=== PATIENT | male | born 1980 ===

== ENCOUNTER 2018-08-27 14:58 | Observation (INO) | payer OTHER ==
[2018-08-27] MEDS ORDERED: Sodium Chloride 0.9% 1,000 ML IV STA (15:43)
--- NOTE | 2018-08-27 15:56 | ED PDOC ---
Arrival/HPI - General Historian: Patient - History of Present Illness Narrative History of Present Illness (Text): 08/27/18 15:55 37-year-old male presents today with right-sided abdominal pain. Patient states he had slight abdominal pain yesterday and then about 6 hours prior to arrival he developed severe sharp achy right-sided abdominal pain that is nonradiating. He denies testicular pain. He denies urinary symptoms. Patient states pain is associated with nausea vomiting and diarrhea. Patient denies chest pain or shortness of breath. Patient states he took Tylenol at home for pain without improvement. pt denies back pain. denies dizziness or weakness. no sick contacts. no other complaints. <Rachael Braun - Last Filed: 08/27/18 19:29> <Tristian Jolly - Last Filed: 08/28/18 07:26> - General Time Seen by Provider: 08/27/18 15:17 Past Medical History - Provider Review Nursing Documentation Reviewed: Yes - Travel History Have you recently traveled outside [place] w/in the past 3 mons?: No - Tetanus Immunization Tetanus Immunization: Unknown <Rachael Braun - Last Filed: 08/27/18 19:29> Family/Social History - Physician Review Nursing Documentation Reviewed: Yes Family/Social History: Unknown Family HX Smoking Status: Never Smoked Hx Alcohol Use: No Hx Substance Use: No Hx Substance Use Treatment: No <Rachael Braun - Last Filed: 08/27/18 19:29> Allergies/Home Meds <Rachael Braun - Last Filed: 08/27/18 19:29> <Tristian Jolly - Last Filed: 08/28/18 07:26> Allergies/Adverse Reactions: Allergies No Known Allergies Allergy (Verified 08/27/18 15:24) Review of Systems - Review of Systems Constitutional: absent: Fatigue, Fevers Respiratory: absent: SOB, Cough Cardiovascular: absent: Chest Pain, Palpitations Gastrointestinal: Abdominal Pain, Diarrhea, Nausea, Vomiting. absent: Constipation Genitourinary Male: Other (no testicular pain). absent: Dysuria, Frequency, Hematuria Musculoskeletal: absent: Arthralgias, Back Pain, Neck Pain Skin: absent: Rash, Pruritis Neurological: absent: Headache, Dizziness Psychiatric: absent: Anxiety, Depression <Rachael Braun - Last Filed: 08/27/18 19:29> Physical Exam Vital Signs Reviewed: Yes Vital Signs Temp Pulse Resp BP Pulse Ox 08/27/18 15:39 98.9 F 88 18 139/72 97 Temperature: Afebrile Blood Pressure: Normal Pulse: Regular Respiratory Rate: Normal Appearance: Positive for: Well-Appearing, Non-Toxic, Comfortable Pain Distress: None Mental Status: Positive for: Alert and Oriented X 3 - Systems Exam Head: Present: Atraumatic Mouth: Present: Moist Mucous Membranes Neck: Present: Normal Range of Motion Respiratory/Chest: Present: Clear to Auscultation, Good Air Exchange. No: Respiratory Distress, Accessory Muscle Use Cardiovascular: Present: Regular Rate and Rhythm, Normal S1, S2. No: Murmurs Abdomen: Present: Tenderness (+ ruq and Rlq tenderness), Normal Bowel Sounds. No: Distention, Peritoneal Signs, Rebound, Guarding Upper Extremity: Present: Normal ROM Lower Extremity: Present: Normal ROM Neurological: Present: GCS=15, Speech Normal Skin: Present: Warm, Dry, Normal Color. No: Rashes Psychiatric: Present: Alert, Oriented x 3 <Rachael Braun T - Last Filed: 08/27/18 19:29> Vital Signs Temp Pulse Resp BP Pulse Ox 08/28/18 06:00 98.8 F 64 20 116/76 96 08/28/18 05:32 57 L 08/28/18 02:23 18 08/28/18 02:00 55 L 08/28/18 00:00 98.7 F 51 L 20 129/73 98 08/27/18 19:00 72 18 134/72 99 08/27/18 15:39 98.9 F 88 18 139/72 97 <Tristian Jolly - Last Filed: 08/28/18 07:26> Medical Decision Making ED Course and Treatment: 08/27/18 17:34 Patient is nontoxic well appearing with stable vital signs presenting with severe right sided abdominal pain CBC wnl CMP k; 5.5 repeated 5.3 Lipase wnl Urinalysis + blood, trace leukocytes CAT scan: FINDINGS: LUNG BASES: The lung bases appear clear. No pleural effusions are seen. LIVER: Unremarkable. GALLBLADDER AND BILE DUCTS: The gallbladder appears within normal limits. No radioopaque gallstones are seen. No biliary ductal dilatation is evident. PANCREAS: Unremarkable. SPLEEN: Unremarkable. ADRENAL GLANDS: Unremarkable. KIDNEYS, URETERS, AND BLADDER: The kidneys appear within normal limits. There is no hydronephrosis or hydroureter. Tiny 2 mm calculus may be present at the base of the bladder overlying the region of the prostate gland. STOMACH AND BOWEL: Unremarkable appearance of the stomach and bowel. No evidence of bowel obstruction. No evidence suggesting enteritis or colitis. APPENDIX: No evidence of acute appendicitis on CT examination. PERITONEUM: No free fluid. No free air. LYMPH NODES: No lymphadenopathy is evident. REPRODUCTIVE: Unremarkable as visualized. VASCULATURE: No evidence of abdominal aortic aneurysm. BONES: There is degenerative change with disc space narrowing at the L4-L5 and L5-S1 disc spaces. IMPRESSION: No mass or obstruction or calculus involving the kidneys. Findings suggest an approximate 2 mm calculus at the base of the bladder overlying the prostate gland. Degenerative changes lower lumbar spine with disc space narrowing at the L4-5 and L5-S1 disc spaces. Patient reassessment: pt feeling better. EKG shows sinus bradycardia at 52 bpm with slight peaked T waves. will start Rocephin for UTI. Case discussed with Dr. Jolly in depth. We will give 15 mg of Kayexalate by mouth. The patient has been having multiple episodes of diarrhea and vomiting Today and still appears to have an elevated potassium level of 5.5 EKG shows peak T waves will admit observational status for telemetry for further evaluation. Case was discussed with Dr. Marin except observational status admission Discussed all results with patient in depth Impression: Abdominal pain hyperkalemia, UTI, hematuria admit observational status to remote tele. Reassessment Condition: Re-examined, Improved - RAD Interpretation Radiology Orders: 08/27/18 15:42 ABD & PELVIS IV CONTRAST ONLY [CT] Stat - Medication Orders Current Medication Orders: Sodium Chloride (Sodium Chloride 0.9%) 1,000 mls @ 999 mls/hr IV .Q1H1M STA Stop: 08/27/18 16:43 Discontinued Medications Ketorolac Tromethamine (Toradol) 30 mg IVP STAT STA Stop: 08/27/18 15:44 Ondansetron HCl (Zofran Inj) 4 mg IVP STAT STA Stop: 08/27/18 15:44 <Rachael Braun T - Last Filed: 08/27/18 19:29> ED Course and Treatment: 08/28/18 07:26 The documented history was done by the physician public information coordinator. The documented physical exam was done by the physician public information coordinator. The documented procedures were done by the physician public information coordinator, I was available for consultation during the PA/COURIER evaluation. The chart was reviewed by me, and I agree with the management and plan. - Lab Interpretations Lab Results: 08/27/18 16:15 08/27/18 17:36 Lab Results 08/27/18 17:36: Potassium 5.3 H 08/27/18 16:31: Urine Color Yellow, Urine Appearance Clear, Urine pH 6.0, Ur Specific [place] 1.025, Urine Protein Negative, Urine Glucose (UA) Negative, Urine Ketones Negative, Urine Blood Large H, Urine Nitrate Negative, Urine Bilirubin Negative, Urine Urobilinogen 0.2, Ur Leukocyte Esterase Trace H, Urine RBC 20 - 25, Urine WBC 2 - 5, Ur Epithelial Cells 0 - 2, Urine Bacteria Many 08/27/18 16:15: pO2 26 L, VBG pH 7.31 L, VBG pCO2 58.0, VBG HCO3 29.2 H, VBG Tot al CO2 31.0 H, VBG O2 Sat (Calc) 48.5, VBG Base Excess 1.6, VBG Potassium 5.2, Sodium 138.0, Chloride 106.0, Glucose 102, Lactate 1.7, FiO2 21.0, Venous Blood Potassium 5.2 08/27/18 16:15: WBC 9.9, RBC 5.02, Hgb 14.3, Hct 43.5, MCV 86.7, MCH 28.5, MCHC 32.9, RDW 14.3, Plt Count 269, MPV 10.2, Gran % 77.8 H, Lymph % (Auto) 16.5 L, [place] % (Auto) 5.2, Eos % (Auto) 0.4 L, Baso % (Auto) 0.1, Gran # 7.72 H, Lymph # (Auto) 1.6, [place] # (Auto) 0.5, Eos # (Auto) 0.0, Baso # (Auto) 0.01 08/27/18 16:15: Sodium 142, Chloride 104, Potassium 5.5 H, Carbon Dioxide 29, Anion Gap 15, BUN 14, Creatinine 0.9, Est GFR ( Amer) > 60, Est GFR (Non- Af Amer) > 60, Random Glucose 106, Calcium 9.8, Total Bilirubin 0.3, AST 33, ALT 47, Alkaline Phosphatase 76, Total Protein 8.4 H, Albumin 5.0 H, Globulin 3.4, Albumin/Globulin Ratio 1.5, Lipase 50 - RAD Interpretation Radiology Orders: 08/27/18 15:42 ABD & PELVIS IV CONTRAST ONLY [CT] Stat 08/27/18 16:06 CHEST PORTABLE [RAD] Stat - Medication Orders Current Medication Orders: Acetaminophen (Tylenol 325mg Tab) 650 mg PO Q6H PRN PRN Reason: Pain, Mild (1-3) Camphor/Menthol (Bengay) 0 gm TOP QID PRN PRN Reason: Pain, Mild (1-3) Sodium Chloride (Sodium Chloride 0.9%) 1,000 mls @ 150 mls/hr IV .Q6H40M PIPPA Last Admin: 08/28/18 06:18 Dose: 150 mls/hr eMAR Start Stop Document 08/28/18 06:18 [facility] (Rec: 08/28/18 06:18 [facility] [id number]) Intravenous Solution Start Date 08/28/18 Start Time 06:18 Ketorolac Tromethamine (Toradol) 30 mg IVP Q6 PRN PRN Reason: Pain, severe (8-10) Last Admin: 08/28/18 02:41 Dose: 30 mg [facility] Pain Assessment Document 08/28/18 02:41 [facility] (Rec: 08/28/18 02:41 [id number] Pain Reassessment Is this a pain reassessment? Yes Sleep Is patient sleeping during reassessment? No Presence of Pain Presence of Pain Yes Location Left, Right or Bilateral Bilateral Pain Location Body Site Abdomen IVP Administration Document 08/28/18 02:41 [facility] (Rec: 08/28/18 02:41 [id number] Charges for Administration # of IVP Administrations 1 Re-Assess: DARRELL Pain Assessment Document 08/28/18 03:41 [facility] (Rec: 08/28/18 05:29 [id number] Pain Reassessment Is this a pain reassessment? Yes Sleep Is patient sleeping during reassessment? No Presence of Pain Presence of Pain No Ondansetron HCl (Zofran Inj) 4 mg IVP Q4H PRN PRN Reason: Nausea/Vomiting Discontinued Medications Sodium Chloride (Sodium Chloride 0.9%) 1,000 mls @ 999 mls/hr IV .Q1H1M STA Stop: 08/27/18 16:43 Last Admin: 08/27/18 16:28 Dose: 999 mls/hr eMAR Start Stop Document 08/27/18 16:28 [facility] (Rec: 08/27/18 16:28 [id number][facility] Intravenous Solution Start Date 08/27/18 Start Time 16:28 Ceftriaxone Sodium (Rocephin 1 Gram Ivpb) 1 gm in 100 mls @ 200 mls/hr IVPB STAT STA; Protocol Stop: 08/27/18 19:41 Last Admin: 08/27/18 20:18 Dose: 200 mls/hr eMAR Start Stop Document 08/27/18 20:18 [facility] (Rec: 08/27/18 20:18 [facility] [id number]) Intravenous Solution Start Date 08/27/18 Start Time 20:18 Ketorolac Tromethamine (Toradol) 30 mg IVP STAT STA Stop: 08/27/18 15:44 Last Admin: 08/27/18 16:28 Dose: 30 mg [facility] Pain Assessment Document 08/27/18 16:28 [facility] (Rec: 08/27/18 16:28 [id number]) Pain Reassessment Is this a pain reassessment? No Sleep Is patient sleeping during reassessment? No Presence of Pain Presence of Pain Yes Description Description Sharp Intensity of Pain at present 10 IVP Administration Document 08/27/18 16:28 [facility] (Rec: 08/27/18 16:28 [place] [id number]) Charges for Administration # of IVP Administrations 1 Ondansetron HCl (Zofran Inj) 4 mg IVP STAT STA Stop: 08/27/18 15:44 Last Admin: 08/27/18 16:29 Dose: 4 mg IVP Administration Document 08/27/18 16:29 [facility] (Rec: 08/27/18 16:29 [place] [id number]) Charges for Administration # of IVP Administrations 1 Sodium Polystyrene Sulfonate (Kayexalate Susp) 15 gm PO STAT STA Stop: 08/27/18 19:03 Last Admin: 08/27/18 20:19 Dose: 15 gm <Tristian Jolly - Last Filed: 08/28/18 07:26> Disposition/Present on Arrival - Present on Arrival Any Indicators Present on Arrival: No History of DVT/PE: No History of Uncontrolled Diabetes: No Urinary Catheter: No History of Decub. Ulcer: No - Disposition Have Diagnosis and Disposition been Completed?: Yes Disposition Time: 19:15 Patient Plan: Observation <Rachael Braun - Last Filed: 08/27/18 19:29> <Tristian Jolly - Last Filed: 08/28/18 07:26> - Disposition Diagnosis: Abdominal pain, Hyperkalemia, Hematuria, Urinary tract infection Disposition: HOSPITALIZED Condition: FAIR
[2018-08-27 16:36] LABS: VENOUS BLOOD GAS BASE EXCESS 1.6 mmol/L (0.0-2.0); VENOUS BLOOD GAS PO2 26 mm/Hg (30-55); VENOUS BLOOD PH 7.31 (7.32-7.43)
[2018-08-27 16:43] LABS: BASO # 0.01 K/mm3 (0.0-2.0); BASO % 0.1 % (0.0-3.0); EOS % 0.4 % (1.5-5.0); GRAN # 7.72 (1.4-6.5); GRAN % 77.8 % (50.0-68.0); HEMOGLOBIN 14.3 g/dL (14.0-18.0); LYMPH # 1.6 (1.2-3.4); LYMPH % 16.5 % (22.0-35.0); MEAN CELL VOLUME 86.7 fl (80.0-105.0); MEAN CORPUSCULAR HEMOGLOBIN 28.5 pg (25.0-35.0); MEAN CORPUSCULAR HGB CONC 32.9 g/dl (31.0-37.0); MEAN PLATELET VOLUME 10.2 fl (7.0-11.0); MONO # 0.5 (0.1-0.6); MONO % 5.2 % (1.0-6.0); RBC 5.02 10^6/uL (3.5-6.1); RED CELL DISTRIBUTION WIDTH 14.3 % (11.5-14.5); WHITE BLOOD COUNT 9.9 10^3/ul (4.5-11.0)
[2018-08-27 16:47] LABS: ALB/GLOB RATIO 1.5 (1.1-1.8); ALT/SGPT 47 U/L (7-56); AST/SGOT 33 U/L (17-59); BLOOD UREA NITROGEN 14 mg/dL (7-21); CALCIUM 9.8 mg/dL (8.4-10.5); GFR NON-AFRICAN AMERICAN > 60; LIPASE 50 U/L (23-300)
[2018-08-27 17:15] LABS: URINE BILIRUBIN NEGATIVE (NEGATIVE); URINE BLOOD LARGE (NEGATIVE); URINE GLUCOSE (UA) NEGATIVE (NEGATIVE); URINE LEUKOCYTE ESTERASE TRACE Leu/uL (NEGATIVE); URINE PROTEIN NEGATIVE mg/dL (<30 mg/dL); URINE UROBILINOGEN 0.2 E.U./dL (<1 E.U./dL)
[2018-08-27 17:17] LABS: URINE APPEARANCE CLEAR (CLEAR); URINE COLOR YELLOW (YELLOW)
[2018-08-27 17:24] LABS: URINE EPITHELIAL CELLS 0 - 2 /hpf (0-5); URINE RBC 20 - 25 /hpf (0-2)
[2018-08-27 17:25] LABS: URINE BACTERIA MANY (NEG)
[2018-08-27] MEDS ORDERED: Sod Polystyrene Sulf 15 gm/60 ml Susp PO STA (19:02)
[2018-08-27] MEDS ORDERED: cefTRIAXone 1 gm 1 GM/100 ML BAG IVPB STA (19:12)
--- NOTE | 2018-08-27 19:25 | CP.PCM.HP ---
<Nathalie Escalera - Last Filed: 08/27/18 20:14> History of Present Illness - History of Present Illness History of Present Illness: PGY-1 Nathalie Escalera D.O. H&P: Prateek Ernst is a 37 yo male without PMH who presents with R-sided abdominal pain. Patient states that the abdominal pain started today, and lasted >6 hours. He took Tylenol which did not relieve the pain. Pain subsided in the ED after receiving Toradol. Patient reports experiencing diarrhea intermittently over the past week. He also started to have intermittent R lower back pain about 2 weeks ago. Patient denies history of kidney stone. He reports a questionable history of gout in his R great toe about 1 year ago for which he self-treated with OTC aguilar extract. He does not have a specific diet. Patient denies ever seeing a copy center associate or getting EGD/colonoscopy. He denies present pain, fevers/chills, SOB, dysuria, gross hematuria. PMH: ?gout, cyst removed from back Meds: OTC aguilar extract All: NKA FH: unknown SH: alcohol socially, denies tobacco or illicit drug use PMD: none Present on Admission - Present on Admission Any Indicators Present on Admission: No History of DVT/PE: No History of Uncontrolled Diabetes: No Urinary Catheter: No Decubitus Ulcer Present: No History Surgical Site Infection Following: None Review of Systems - Constitutional Constitutional: absent: Chills, Fatigue, Fever, Headache, Weight Gain, Weight Loss - EENT Eyes: absent: Change in Vision Ears: absent: Decreased Hearing, Tinnitus Nose/Mouth/Throat: absent: Nasal Congestion, Sore Throat - Cardiovascular Cardiovascular: absent: Chest Pain, Dyspnea, Palpitations - Respiratory Respiratory: absent: Cough, Dyspnea - Gastrointestinal Gastrointestinal: As Per HPI, Abdominal Pain, Diarrhea. absent: Constipation, Nausea, Vomiting - Genitourinary Genitourinary: absent: Difficulty Urinating, Dysuria, Hematuria, Urinary Frequency, Urinary Hesitance, Urinary Urgency - Musculoskeletal Musculoskeletal: Back Pain. absent: Numbness, Tingling - Integumentary Integumentary: absent: Lesions - Neurological Neurological: absent: Behavioral Changes, Dizziness, Numbness, Focal Weakness, Headaches, Paresthesias, Weakness - Psychiatric Psychiatric: absent: Anxiety, Behavioral Changes, Depression - Endocrine Endocrine: absent: Fatigue, Palpitations - Hematologic/Lymphatic Hematologic: absent: Easy Bleeding, Easy Bruising, Lymphadenopathy Past Patient History - Tetanus Immunizations Tetanus Immunization: Unknown - Past Medical History & Family History Past Medical History?: No Past Family History: Reviewed and not pertinent - Past Social History Smoking Status: Never Smoked Chewing Tobacco Use: No Cigar Use: No Alcohol: Social Drugs: Denies - PSYCHIATRIC Hx Substance Use: No - ANESTHESIA Hx Anesthesia: Yes Hx Anesthesia Reactions: No Hx Malignant Hyperthermia: No Meds Allergies/Adverse Reactions: Allergies Allergy/AdvReac Type Severity Reaction Status Date / Time No Known Allergies Allergy Verified 08/27/18 15:24 Physical Exam - Head Exam Head Exam: ATRAUMATIC, NORMAL INSPECTION - Eye Exam Eye Exam: EOMI, Normal appearance, PERRL - ENT Exam ENT Exam: Mucous Membranes Moist, Normal Exam - Neck Exam Neck exam: Positive for: Normal Inspection - Respiratory Exam Respiratory Exam: Clear to Auscultation Bilateral, NORMAL BREATHING PATTERN. absent: Respiratory Distress - Cardiovascular Exam Cardiovascular Exam: REGULAR RHYTHM, +S1, +S2 - GI/Abdominal Exam GI & Abdominal Exam: Normal Bowel Sounds, Soft. absent: Guarding, Rebound, Rigid, Tenderness - Rectal Exam Rectal Exam: Deferred - Extremities Exam Extremities exam: Positive for: normal inspection, pedal pulses present. Negative for: pedal edema - Back Exam Back exam: NORMAL INSPECTION, tenderness (R SI joint) - Neurological Exam Neurological exam: Alert, CN II-XII Intact, Oriented x3 - Psychiatric Exam Psychiatric exam: Normal Affect, Normal Mood - Skin Skin Exam: Dry, Intact, Normal Color, Warm Results - Vital Signs Recent Vital Signs: Last Vital Signs Temp 98.9 F 08/27/18 15:39 Pulse 88 08/27/18 15:39 Resp 18 08/27/18 15:39 BP 139/72 08/27/18 15:39 Pulse Ox 97 08/27/18 15:39 - Labs Result Diagrams: 08/27/18 16:15 08/27/18 17:36 Labs: Laboratory Results - last 24 hr 08/27/18 08/27/18 08/27/18 16:15 16:15 16:15 WBC 9.9 RBC 5.02 Hgb 14.3 Hct 43.5 MCV 86.7 MCH 28.5 MCHC 32.9 RDW 14.3 Plt Count 269 MPV 10.2 Gran % 77.8 H Lymph % (Auto) 16.[address] [place] % (Auto) 5.2 Eos % (Auto) 0.4 L Baso % (Auto) 0.1 Gran # 7.72 H Lymph # (Auto) 1.6 [place] # (Auto) 0.5 Eos # (Auto) 0.0 Baso # (Auto) 0.01 pO2 26 L VBG pH 7.31 L VBG pCO2 58.0 VBG HCO3 29.2 H VBG Total CO2 31.0 H VBG O2 Sat (Calc) 48.5 VBG Base Excess 1.6 VBG Potassium 5.2 Sodium 142 138.0 Chloride 104 106.0 Glucose 102 Lactate 1.7 FiO2 21.0 Potassium 5.5 H Carbon Dioxide 29 Anion Gap 15 BUN 14 Creatinine 0.9 Est GFR ( Amer) > 60 Est GFR (Non-Af Amer) > 60 Random Glucose 106 Calcium 9.8 Total Bilirubin 0.3 AST 33 ALT 47 Alkaline Phosphatase 76 Total Protein 8.4 H Albumin 5.0 H Globulin 3.4 Albumin/Globulin Ratio 1.5 Lipase 50 Venous Blood Potassium 5.2 Urine Color Urine Appearance Urine pH Ur Specific [place] Urine Protein Urine Glucose (UA) Urine Ketones Urine Blood Urine Nitrate Urine Bilirubin Urine Urobilinogen Ur Leukocyte Esterase Urine RBC Urine WBC Ur Epithelial Cells Urine Bacteria 08/27/18 08/27/18 16:31 17:36 WBC RBC Hgb Hct MCV MCH MCHC RDW Plt Count MPV Gran % Lymph % (Auto) [place] % (Auto) Eos % (Auto) Baso % (Auto) Gran # Lymph # (Auto) [place] # (Auto) Eos # (Auto) Baso # (Auto) pO2 VBG pH VBG pCO2 VBG HCO3 VBG Total CO2 VBG O2 Sat (Calc) VBG Base Excess VBG Potassium Sodium Chloride Glucose Lactate FiO2 Potassium 5.3 H Carbon Dioxide Anion Gap BUN Creatinine Est GFR ( Amer) Est GFR (Non-Af Amer) Random Glucose Calcium Total Bilirubin AST ALT Alkaline Phosphatase Total Protein Albumin Globulin Albumin/Globulin Ratio Lipase Venous Blood Potassium Urine Color Yellow Urine Appearance Clear Urine pH 6.0 Ur Specific [place] 1.025 Urine Protein Negative Urine Glucose (UA) Negative Urine Ketones Negative Urine Blood Large H Urine Nitrate Negative Urine Bilirubin Negative Urine Urobilinogen 0.2 Ur Leukocyte Esterase Trace H Urine RBC 20 - 25 Urine WBC 2 - 5 Ur Epithelial Cells 0 - 2 Urine Bacteria Many Assessment & Plan - Assessment and Plan (Free Text) Assessment: Patient is a 37 yo male with no PMH who presented to the ED with R-sided abdominal pain. CT revealed a 2mm stone in the bladder. Plan: R-sided abdominal pain 2/2 Urolithiasis - CT A/P w/ IV contrast: 2 mm stone in bladder - UA: large blood, trace LE, many leni, 2-5 WBC - Strain urine - NS @ 150 - Tylenol 650 mg PO Q6H PRN - Toradol 30 mg IV Q6H PRN Hyperkalemia (5.5)- suspect iatrogenic 2/2 aguilar extract - Counseled on discontinuing OTC aguilar extract supplement - EKG: minimally peaked T waves - Kayexalate 15 g PO x1 - BMP in AM Diarrhea, intermittent - Monitor- work-up if not resolving IVF: NS @ 150 Diet: lactose free GI ppx: not indicated VTE ppx: SCDs Code status: full code Dispo: will establish care at [facility] upon discharge Case was discussed with attending, Dr. Marin. <Ina Marin - Last Filed: 08/28/18 02:35> Results - Vital Signs Recent Vital Signs: Last Vital Signs Temp 98.7 F 08/28/18 00:00 Pulse 55 L 08/28/18 02:00 Resp 18 08/28/18 02:23 BP 129/73 08/28/18 00:00 Pulse Ox 98 08/28/18 00:00 - Labs Result Diagrams: 08/27/18 16:15 08/27/18 17:36 Labs: Laboratory Results - last 24 hr 08/27/18 08/27/18 08/27/18 16:15 16:15 16:15 WBC 9.9 RBC 5.02 Hgb 14.3 Hct 43.5 MCV 86.7 MCH 28.5 MCHC 32.9 RDW 14.3 Plt Count 269 MPV 10.2 Gran % 77.8 H Lymph % (Auto) 16.[address] [place] % (Auto) 5.2 Eos % (Auto) 0.4 L Baso % (Auto) 0.1 Gran # 7.72 H Lymph # (Auto) 1.6 [place] # (Auto) 0.5 Eos # (Auto) 0.0 Baso # (Auto) 0.01 pO2 26 L VBG pH 7.31 L VBG pCO2 58.0 VBG HCO3 29.2 H VBG Total CO2 31.0 H VBG O2 Sat (Calc) 48.5 VBG Base Excess 1.6 VBG Potassium 5.2 Sodium 142 138.0 Chloride 104 106.0 Glucose 102 Lactate 1.7 FiO2 21.0 Potassium 5.5 H Carbon Dioxide 29 Anion Gap 15 BUN 14 Creatinine 0.9 Est GFR ( Amer) > 60 Est GFR (Non-Af Amer) > 60 Random Glucose 106 Calcium 9.8 Total Bilirubin 0.3 AST 33 ALT 47 Alkaline Phosphatase 76 Lactate Dehydrogenase Total Creatine Kinase Troponin I Total Protein 8.4 H Albumin 5.0 H Globulin 3.4 Albumin/Globulin Ratio 1.5 Lipase 50 Venous Blood Potassium 5.2 Urine Color Urine Appearance Urine pH Ur Specific [place] Urine Protein Urine Glucose (UA) Urine Ketones Urine Blood Urine Nitrate Urine Bilirubin Urine Urobilinogen Ur Leukocyte Esterase Urine RBC Urine WBC Ur Epithelial Cells Urine Bacteria 08/27/18 08/27/18 08/27/18 16:31 17:36 19:32 WBC RBC Hgb Hct MCV MCH MCHC RDW Plt Count MPV Gran % Lymph % (Auto) [place] % (Auto) Eos % (Auto) Baso % (Auto) Gran # Lymph # (Auto) [place] # (Auto) Eos # (Auto) Baso # (Auto) pO2 VBG pH VBG pCO2 VBG HCO3 VBG Total CO2 VBG O2 Sat (Calc) VBG Base Excess VBG Potassium Sodium Chloride Glucose Lactate FiO2 Potassium 5.3 H Carbon Dioxide Anion Gap BUN Creatinine Est GFR ( Amer) Est GFR (Non-Af Amer) Random Glucose Calcium Total Bilirubin AST ALT Alkaline Phosphatase Lactate Dehydrogenase 479 Total Creatine Kinase 182 Troponin I < 0.01 Total Protein Albumin Globulin Albumin/Globulin Ratio Lipase Venous Blood Potassium Urine Color Yellow Urine Appearance Clear Urine pH 6.0 Ur Specific [place] 1.025 Urine Protein Negative Urine Glucose (UA) Negative Urine Ketones Negative Urine Blood Large H Urine Nitrate Negative Urine Bilirubin Negative Urine Urobilinogen 0.2 Ur Leukocyte Esterase Trace H Urine RBC 20 - 25 Urine WBC 2 - 5 Ur Epithelial Cells 0 - 2 Urine Bacteria Many Attending/Attestation - Attestation I have personally seen and examined this patient.: Yes I have fully participated in the care of the patient.: Yes I have reviewed all pertinent clinical information: Yes
[2018-08-27 19:55] LABS: TROPONIN I < 0.01 ng/mL
[2018-08-27] MEDS ORDERED: Menthol/Methyl Salicylate Ointment(1 oz) TOP PRN (20:10)
[2018-08-27] MEDS: Sodium Chloride 0.9% 1,000 ML IV SCH (22:48)
[2018-08-28 02:26] VITALS: BMI 10.1
[2018-08-28] MEDS: Sodium Chloride 0.9% 1,000 ML IV SCH (06:18)
[2018-08-28 06:54] VITALS: BP 116/76; RESP 20; TEMP 98.8; O2SAT 96
[2018-08-28 08:11] LABS: HEMOGLOBIN 12.9 g/dL (14.0-18.0); MEAN CELL VOLUME 86.3 fl (80.0-105.0); MEAN CORPUSCULAR HGB CONC 32.5 g/dl (31.0-37.0); MEAN PLATELET VOLUME 10.1 fl (7.0-11.0); RBC 4.6 10^6/uL (3.5-6.1); RED CELL DISTRIBUTION WIDTH 14.5 % (11.5-14.5); WHITE BLOOD COUNT 8.3 10^3/ul (4.5-11.0)
[2018-08-28] MEDS ORDERED: Sodium Chloride 0.9% 1,000 ML IV SCH (08:19)
[2018-08-28 10:23] LABS: BLOOD UREA NITROGEN 11 mg/dL (7-21); GFR NON-AFRICAN AMERICAN > 60
[2018-08-28 10:24] LABS: ALB/GLOB RATIO 1.4 (1.1-1.8); ALT/SGPT 42 U/L (7-56); AST/SGOT 24 U/L (17-59); CALCIUM 8.8 mg/dL (8.4-10.5)
--- NOTE | 2018-08-28 10:24 | RAD ---
Date of service: 08/27/2018 HISTORY: ABD pain COMPARISON: No prior. FINDINGS: LUNGS: No active pulmonary disease. PLEURA: No significant pleural effusion identified, no pneumothorax apparent. CARDIOVASCULAR: Normal. OSSEOUS STRUCTURES: No significant abnormalities. VISUALIZED UPPER ABDOMEN: Normal. OTHER FINDINGS: None. IMPRESSION: No active disease.
[2018-08-28 11:22] VITALS: PULSE 70
--- NOTE | 2018-08-28 11:23 | CP.PCM.DIS ---
<Nathalie Escalera - Last Filed: 08/28/18 12:22> Provider - Provider Date of Admission: 08/27/18 19:10 Attending physician: Nancy Moreau MD Primary care physician: NO PRIMARY CARE PROVIDER Consults: urology Time Spent in preparation of Discharge (in minutes): 45 Diagnosis - Discharge Diagnosis (1) Urolithiasis Status: Resolved Priority: High (2) Hyperkalemia Status: Resolved Priority: High Hospital Course - Lab Results Lab Results: Most Recent Lab Values WBC 8.3 10^3/ul (4.5-11.0) 08/28/18 07:00 RBC 4.60 10^6/uL (3.5-6.1) 08/28/18 07:00 Hgb 12.9 g/dL (14.0-18.0) L 08/28/18 07:00 Hct 39.7 % (42.0-52.0) L 08/28/18 07:00 MCV 86.3 fl (80.0-105.0) 08/28/18 07:00 MCH 28.0 pg (25.0-35.0) 08/28/18 07:00 MCHC 32.5 g/dl (31.0-37.0) 08/28/18 07:00 RDW 14.5 % (11.5-14.5) 08/28/18 07:00 Plt Count 217 10^3/uL (120.0-450.0) 08/28/18 07:00 MPV 10.1 fl (7.0-11.0) 08/28/18 07:00 Gran % 77.8 % (50.0-68.0) H 08/27/18 16:15 Lymph % (Auto) 16.5 % (22.0-35.0) L 08/27/18 16:15 [place] % (Auto) 5.2 % (1.0-6.0) 08/27/18 16:15 Eos % (Auto) 0.4 % (1.5-5.0) L 08/27/18 16:15 Baso % (Auto) 0.1 % (0.0-3.0) 08/27/18 16:15 Gran # 7.72 (1.4-6.5) H 08/27/18 16:15 Lymph # (Auto) 1.6 (1.2-3.4) 08/27/18 16:15 [place] # (Auto) 0.5 (0.1-0.6) 08/27/18 16:15 Eos # (Auto) 0.0 (0.0-0.7) 08/27/18 16:15 Baso # (Auto) 0.01 K/mm3 (0.0-2.0) 08/27/18 16:15 pO2 26 mm/Hg (30-55) L 08/27/18 16:15 VBG pH 7.31 (7.32-7.43) L 08/27/18 16:15 VBG pCO2 58.0 (40-60) 08/27/18 16:15 VBG HCO3 29.2 mmol/l (21-28) H 08/27/18 16:15 VBG Total CO2 31.0 mmol.L (22-28) H 08/27/18 16:15 VBG O2 Sat (Calc) 48.5 % (40-65) 08/27/18 16:15 VBG Base Excess 1.6 mmol/L (0.0-2.0) 08/27/18 16:15 VBG Potassium 5.2 mmol/L (3.6-5.2) 08/27/18 16:15 Sodium 138.0 mmol/L (132-148) 08/27/18 16:15 Chloride 106.0 mmol/L (98-107) 08/27/18 16:15 Glucose 102 mg/dl (75-110) 08/27/18 16:15 Lactate 1.7 mmol/L (0.7-2.1) 08/27/18 16:15 FiO2 21.0 % 08/27/18 16:15 Sodium 140 mmol/L (132-148) 08/28/18 07:00 Potassium 4.2 mmol/L (3.6-5.0) 08/28/18 07:00 Chloride 105 mmol/L (98-107) 08/28/18 07:00 Carbon Dioxide 26 mmol/L (21-33) 08/28/18 07:00 Anion Gap 13 (10-20) 08/28/18 07:00 BUN 11 mg/dL (7-21) 08/28/18 07:00 Creatinine 0.9 mg/dl (0.8-1.5) 08/28/18 07:00 Est GFR ( Amer) > 60 08/28/18 07:00 Est GFR (Non-Af Amer) > 60 08/28/18 07:00 Random Glucose 98 mg/dL (70-110) 08/28/18 07:00 Calcium 8.8 mg/dL (8.4-10.5) 08/28/18 07:00 Phosphorus 3.4 mg/dL (2.5-4.5) 08/28/18 07:00 Magnesium 1.9 mg/dL (1.7-2.2) 08/28/18 07:00 Total Bilirubin 0.3 mg/dL (0.2-1.3) 08/28/18 07:00 AST 24 U/L (17-59) 08/28/18 07:00 ALT 42 U/L (7-56) 08/28/18 07:00 Alkaline Phosphatase 59 U/L (38-126) 08/28/18 07:00 Lactate Dehydrogenase 479 U/L (333-699) 08/27/18 19:32 Total Creatine Kinase 182 U/L (35-230) 08/27/18 19:32 Troponin I < 0.01 ng/mL 08/27/18 19:32 Total Protein 6.9 g/dL (5.8-8.3) 08/28/18 07:00 Albumin 4.0 g/dL (3.0-4.8) 08/28/18 07:00 Globulin 2.9 gm/dL 08/28/18 07:00 Albumin/Globulin Ratio 1.4 (1.1-1.8) 08/28/18 07:00 Lipase 50 U/L (23-300) 08/27/18 16:15 Venous Blood Potassium 5.2 mmol/L (3.6-5.2) 08/27/18 16:15 Urine Color Yellow (YELLOW) 08/27/18 16:31 Urine Appearance Clear (CLEAR) 08/27/18 16:31 Urine pH 6.0 (4.7-8.0) 08/27/18 16:31 Ur Specific [place] 1.025 (1.005-1.035) 08/27/18 16:31 Urine Protein Negative mg/dL (<30 mg/dL) 08/27/18 16:31 Urine Glucose (UA) Negative mg/dL (NEGATIVE) 08/27/18 16:31 Urine Ketones Negative mg/dL (NEGATIVE) 08/27/18 16: Urine Blood Large (NEGATIVE) H 08/27/18 16:31 Urine Nitrate Negative (NEGATIVE) 08/27/18 16:31 Urine Bilirubin Negative (NEGATIVE) 08/27/18 16:31 Urine Urobilinogen 0.2 E.U./dL (<1 E.U./dL) 08/27/18 16:31 Ur Leukocyte Esterase Trace Luci/uL (NEGATIVE) H 08/27/18 16:31 Urine RBC 20 - 25 /hpf (0-2) 08/27/18 16: Urine WBC 2 - 5 /hpf (0-6) 08/27/18 16:31 Ur Epithelial Cells 0 - 2 /hpf (0-5) 08/27/18 16: Urine Bacteria Many (NEG) 08/27/18 16:31 - Hospital Course Hospital Course: Prateek Ernst is a 37 yo male without PMH who presents with R-sided abdominal pain. Patient states that the abdominal pain started today, and lasted >6 hours. He took Tylenol which did not relieve the pain. Pain subsided in the ED after receiving Toradol. Patient reports experiencing diarrhea intermittently over the past week. He also started to have intermittent R lower back pain about 2 weeks ago. Patient denies history of kidney stone. He reports a questionable history of gout in his R great toe about 1 year ago for which he self-treated with OTC aguilar extract. He does not have a specific diet. 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 He denies present pain, fevers/chills, SOB, dysuria, gross hematuria. Patient was given IVF and pain control. He strained his urine and passed a small black stone over night. Stone was sent for chemical analysis. Urology was consulted and did not have any further recommendations. Patient was given Kayexalate, and his potassium normalized. Upon discharge, patient did not have any pain. He was started on Flomax. His vitals and labs were stable. Discharge Exam - Head Exam Head Exam: ATRAUMATIC, NORMAL INSPECTION - Eye Exam Eye Exam: EOMI, Normal appearance, PERRL - ENT Exam ENT Exam: Mucous Membranes Moist, Normal Exam - Neck Exam Neck exam: Full Rom, Normal Inspection - Respiratory Exam Respiratory Exam: Clear to PA & Lateral, NORMAL BREATHING PATTERN, UNREMARKABLE - Cardiovascular Exam Cardiovascular Exam: REGULAR RHYTHM, +S1, +S2 - GI/Abdominal Exam GI & Abdominal Exam: Normal Bowel Sounds, Soft, Unremarkable - Rectal Exam Rectal Exam: Deferred - Extremities Exam Extremities exam: normal inspection, pedal pulses present - Back Exam Back exam: NORMAL INSPECTION - Neurological Exam Neurological exam: Alert, CN II-XII Intact, Normal Gait, Oriented x3 - Psychiatric Exam Psychiatric exam: Normal Affect, Normal Mood - Skin Skin Exam: Dry, Intact, Normal Color, Warm Discharge Plan - Discharge Medications Prescriptions: Tamsulosin [Flomax] 0.4 mg PO DAILY #7 cap - Follow Up Plan Condition: IMPROVED Disposition: HOME/ ROUTINE Patient education suggested?: Yes Instructions: Hyperkalemia (DC), Kidney Stones (DC) Additional Instructions: Please establish care at the [facility] within 3-5 days of discharge. Call [phone] to make an appointment. Stop taking OTC supplements, including aguilar extract. You will be given a prescription for Flomax 0.4 mg. Take one daily. If symptoms return, present to the nearest emergency room. Referrals: [facility] at [facility] [Outside] <Nancy Moreau - Last Filed: 08/28/18 13:23> Provider - Provider Date of Admission: 08/27/18 19:10 Attending physician: Nancy Moreau MD Primary care physician: NO PRIMARY CARE PROVIDER Hospital Course - Lab Results Lab Results: Most Recent Lab Values WBC 8.3 10^3/ul (4.5-11.0) 08/28/18 07:00 RBC 4.60 10^6/uL (3.5-6.1) 08/28/18 07:00 Hgb 12.9 g/dL (14.0-18.0) L 08/28/18 07:00 Hct 39.7 % (42.0-52.0) L 08/28/18 07:00 MCV 86.3 fl (80.0-105.0) 08/28/18 07:00 MCH 28.0 pg (25.0-35.0) 08/28/18 07:00 MCHC 32.5 g/dl (31.0-37.0) 08/28/18 07:00 RDW 14.5 % (11.5-14.5) 08/28/18 07:00 Plt Count 217 10^3/uL (120.0-450.0) 08/28/18 07:00 MPV 10.1 fl (7.0-11.0) 08/28/18 07:00 Gran % 77.8 % (50.0-68.0) H 08/27/18 16:15 Lymph % (Auto) 16.5 % (22.0-35.0) L 08/27/18 16:15 [place] % (Auto) 5.2 % (1.0-6.0) 08/27/18 16:15 Eos % (Auto) 0.4 % (1.5-5.0) L 08/27/18 16:15 Baso % (Auto) 0.1 % (0.0-3.0) 08/27/18 16:15 Gran # 7.72 (1.4-6.5) H 08/27/18 16:15 Lymph # (Auto) 1.6 (1.2-3.4) 08/27/18 16:15 [place] # (Auto) 0.5 (0.1-0.6) 08/27/18 16:15 Eos # (Auto) 0.0 (0.0-0.7) 08/27/18 16:15 Baso # (Auto) 0.01 K/mm3 (0.0-2.0) 08/27/18 16:15 pO2 26 mm/Hg (30-55) L 08/27/18 16:15 VBG pH 7.31 (7.32-7.43) L 08/27/18 16:15 VBG pCO2 58.0 (40-60) 08/27/18 16:15 VBG HCO3 29.2 mmol/l (21-28) H 08/27/18 16:15 VBG Total CO2 31.0 mmol.L (22-28) H 08/27/18 16:15 VBG O2 Sat (Calc) 48.5 % (40-65) 08/27/18 16:15 VBG Base Excess 1.6 mmol/L (0.0-2.0) 08/27/18 16:15 VBG Potassium 5.2 mmol/L (3.6-5.2) 08/27/18 16:15 Sodium 138.0 mmol/L (132-148) 08/27/18 16:15 Chloride 106.0 mmol/L (98-107) 08/27/18 16:15 Glucose 102 mg/dl (75-110) 08/27/18 16:15 Lactate 1.7 mmol/L (0.7-2.1) 08/27/18 16:15 FiO2 21.0 % 08/27/18 16:15 Sodium 140 mmol/L (132-148) 08/28/18 07:00 Potassium 4.2 mmol/L (3.6-5.0) 08/28/18 07:00 Chloride 105 mmol/L (98-107) 08/28/18 07:00 Carbon Dioxide 26 mmol/L (21-33) 08/28/18 07:00 Anion Gap 13 (10-20) 08/28/18 07:00 BUN 11 mg/dL (7-21) 08/28/18 07:00 Creatinine 0.9 mg/dl (0.8-1.5) 08/28/18 07:00 Est GFR ( Amer) > 60 08/28/18 07:00 Est GFR (Non-Af Amer) > 60 08/28/18 07:00 Random Glucose 98 mg/dL (70-110) 08/28/18 07:00 Calcium 8.8 mg/dL (8.4-10.5) 08/28/18 07:00 Phosphorus 3.4 mg/dL (2.5-4.5) 08/28/18 07:00 Magnesium 1.9 mg/dL (1.7-2.2) 08/28/18 07:00 Total Bilirubin 0.3 mg/dL (0.2-1.3) 08/28/18 07:00 AST 24 U/L (17-59) 08/28/18 07:00 ALT 42 U/L (7-56) 08/28/18 07:00 Alkaline Phosphatase 59 U/L (38-126) 08/28/18 07:00 Lactate Dehydrogenase 479 U/L (333-699) 08/27/18 19:32 Total Creatine Kinase 182 U/L (35-230) 08/27/18 19:32 Troponin I < 0.01 ng/mL 08/27/18 19:32 Total Protein 6.9 g/dL (5.8-8.3) 08/28/18 07:00 Albumin 4.0 g/dL (3.0-4.8) 08/28/18 07:00 Globulin 2.9 gm/dL 08/28/18 07:00 Albumin/Globulin Ratio 1.4 (1.1-1.8) 08/28/18 07:00 Lipase 50 U/L (23-300) 08/27/18 16:15 Venous Blood Potassium 5.2 mmol/L (3.6-5.2) 08/27/18 16:15 Urine Color Yellow (YELLOW) 08/27/18 16:31 Urine Appearance Clear (CLEAR) 08/27/18 16:31 Urine pH 6.0 (4.7-8.0) 08/27/18 16:31 Ur Specific [place] 1.025 (1.005-1.035) 08/27/18 16:31 Urine Protein Negative mg/dL (<30 mg/dL) 08/27/18 16:31 Urine Glucose (UA) Negative mg/dL (NEGATIVE) 08/27/18 16:31 Urine Ketones Negative mg/dL (NEGATIVE) 08/27/18 16:31 Urine Blood Large (NEGATIVE) H 08/27/18 16:31 Urine Nitrate Negative (NEGATIVE) 08/27/18 16:31 Urine Bilirubin Negative (NEGATIVE) 08/27/18 16:31 Urine Urobilinogen 0.2 E.U./dL (<1 E.U./dL) 08/27/18 16:31 Ur Leukocyte Esterase Trace Luci/uL (NEGATIVE) H 08/27/18 16:31 Urine RBC 20 - 25 /hpf (0-2) 08/27/18 16:31 Urine WBC 2 - 5 /hpf (0-6) 08/27/18 16:31 Ur Epithelial Cells 0 - 2 /hpf (0-5) 08/27/18 16:31 Urine Bacteria Many (NEG) 08/27/18 16:31 Attending/Attestation - Attestation I have personally seen and examined this patient.: Yes I have fully participated in the care of the patient.: Yes I have reviewed all pertinent clinical information, including history, physical exam and plan: Yes Notes (Text): 08/28/18 13:21 Attending note; Patient seen and examined with resident. Patient is alert and awake. Denies any hematuria. Denies any abdominal pain, nausea, vomiting. Tolerating diet well. Ambulating fine. Patient passed a small kidney stone this morning. Currently pain free. Patient is a 37 year old male without PMH who presents with R-sided abdominal pain. Patient states that the abdominal pain started yesterday . CT found to have 2 mm stone in the bladder . Currently patient passed the kidney stone . CT scan reviewed with urologist in detail . Patient can be discharged home . Prescription for Flomax given . Advised to follow-up with [facility] clinic upon discharge.
--- NOTE | 2018-08-28 12:57 | CARD ---
APPROVED REPORT Date of service: 08/27/2018 EKG Measurement Heart [id number] <Conclusion> Sinus bradycardia Otherwise normal ECG
--- NOTE | 2018-08-28 15:06 | CT ---
Date of service: 08/27/2018 PROCEDURE: CT Abdomen and Pelvis with contrast HISTORY: right sided abdominal pain COMPARISON: None. TECHNIQUE: Contrast dose: 150 cc of Omni 350 Radiation dose: Total exam DLP = 890 mGy-cm. This CT exam was performed using one or more of the following dose reduction techniques: Automated exposure control, adjustment of the mA and/or kV according to patient size, and/or use of iterative reconstruction technique. FINDINGS: LOWER THORAX: Unremarkable. LIVER: Unremarkable. No gross lesion or ductal dilatation. GALLBLADDER AND BILE DUCTS: Unremarkable. PANCREAS: Unremarkable. No gross lesion or ductal dilatation. SPLEEN: Unremarkable. ADRENALS: Unremarkable. No mass. KIDNEYS AND URETERS: Unremarkable. No hydronephrosis. No solid mass. VASCULATURE: Unremarkable. No aortic aneurysm. BOWEL: Unremarkable. No obstruction. No gross mural thickening. APPENDIX: Normal appendix. PERITONEUM: Unremarkable. No free fluid. No free air. LYMPH NODES: Unremarkable. No enlarged lymph nodes. BLADDER: There is a small 2 mm calculus at the base of the bladder that may represent a recently passed stone. There are no ureteral stones REPRODUCTIVE: Unremarkable. BONES: Disc degeneration at L4-5 and L5-S1 OTHER FINDINGS: The report concurs with the preliminary [facility] report IMPRESSION: There is a small 2 mm calculus at the base of the bladder that may represent a recently passed stone. There are no ureteral stones
== END 2018-08-28 14:05 | disposition home or self-care (01) ==
LOC: ED 14:58 → ERH 19:10 → 2RNO 22:13
PROVIDERS: ADMIT Internal Medicine; ATTEND Internal Medicine
DX: N21.0 Calculus in bladder (principal); N20.0 Calculus of kidney; E87.5 Hyperkalemia; N39.0 Urinary tract infection, site not specified; R19.7 Diarrhea, unspecified
CPT/HCPCS: 36415; 71045; 74177; 80053; 81001; 82550; 82803; 83615; 83690; 83735; 84100; 84132; 84484; 85025; 85027; 87086; 93005; 96374; 96375; 96376; 99283; G0378; J0696; J1885; J2405; J7030; Q9967

== ENCOUNTER 2019-01-14 07:29 | Outpatient (CLI) | payer OTHER | END 2019-01-14 07:30 | disposition home or self-care (01) | LOC: LAB 07:29 ==

== ENCOUNTER 2019-02-11 10:55 | Outpatient (CLI) | payer OTHER | END 2019-02-11 10:56 | disposition home or self-care (01) | LOC: RAD 10:55 ==